=== PATIENT | female | born 1985 | race Caucasian/White ===

== ENCOUNTER 2017-11-26 14:44 | Emergency (ER) | payer OTHER ==
[~2017-11-26] VITALS: Ht 162.6 cm; Wt 54.0 kg
[2017-11-26] MEDS ORDERED: PRENATABS RX T1 EACH (15:29)
== END 2017-11-26 18:08 | disposition home or self-care (01) ==
LOC: ER 14:44
DX: O20.0 Threatened abortion (principal); Z34.01 Encounter for supervision of normal first pregnancy, first trimester

== ENCOUNTER 2018-05-21 14:06 | Outpatient (CLI) | payer OTHER ==
[~2018-05-21 14:06] MED LIST: PRENATABS RX T1 EACH
== END 2018-05-21 15:18 | disposition home or self-care (01) ==
LOC: NST 14:06
DX: Z34.83 Encounter for supervision of other normal pregnancy, third trimester (principal)

== ENCOUNTER 2018-05-23 15:00 | Inpatient (IN) | payer OTHER ==
[~2018-05-23] VITALS: Ht 162.6 cm; Wt 139.0 kg
== END 2018-06-09 12:43 | disposition home or self-care (01) | DRG 807 ==
LOC: LDR 06-07 08:24 → OB/GYN 06-07 08:24 → LDR 06-07 08:49 → OB/GYN 06-07 16:12
PROVIDERS: ADMIT Obstetrics & Gynecology Maternal & Fetal Medicine
PROC: 10E0XZZ Delivery of Products of Conception, External Approach (ICD-10-PCS; principal; 2018-06-07)
PROC: 0KQM0ZZ Repair Perineum Muscle, Open Approach (ICD-10-PCS; 2018-06-07)
PROC: 0W8NXZZ Division of Female Perineum, External Approach (ICD-10-PCS; 2018-06-07)
PROC: 3E033VJ Introduction of Other Hormone into Peripheral Vein, Percutaneous Approach (ICD-10-PCS; 2018-06-07)
PROC: 10907ZC Drainage of Amniotic Fluid, Therapeutic from Products of Conception, Via Natural or Artificial Opening (ICD-10-PCS; 2018-06-07)
PROC: 4A1HXCZ Monitoring of Products of Conception, Cardiac Rate, External Approach (ICD-10-PCS; 2018-06-07)
DX: O70.1 Second degree perineal laceration during delivery (principal); Z37.0 Single live birth; Z3A.39 39 weeks gestation of pregnancy

== ENCOUNTER 2018-05-29 16:28 | Outpatient (CLI) | payer OTHER | END 2018-05-29 17:24 | disposition HB | LOC: NST 16:28 | DX: Z34.83 Encounter for supervision of other normal pregnancy, third trimester (principal) ==

== ENCOUNTER 2021-01-07 08:12 | Inpatient (IN) | payer OTHER ==
[~2021-01-07] VITALS: Ht 163.8 cm; Wt 63.5 kg
== END 2021-01-10 14:05 | disposition home or self-care (01) | DRG 807 ==
LOC: LDR 08:12 → SURG-SUITE 15:16 → OB/GYN 01-12 17:02
PROVIDERS: ADMIT Obstetrics & Gynecology Maternal & Fetal Medicine; ATTEND Obstetrics & Gynecology Maternal & Fetal Medicine
PROC: 10E0XZZ Delivery of Products of Conception, External Approach (ICD-10-PCS; principal; 2021-01-07)
PROC: 0KQM0ZZ Repair Perineum Muscle, Open Approach (ICD-10-PCS; 2021-01-07)
PROC: 3E033VJ Introduction of Other Hormone into Peripheral Vein, Percutaneous Approach (ICD-10-PCS; 2021-01-07)
PROC: 4A1HXFZ Monitoring of Products of Conception, Cardiac Rhythm, External Approach (ICD-10-PCS; 2021-01-07)
DX: O70.1 Second degree perineal laceration during delivery (principal); Z37.0 Single live birth; Z3A.39 39 weeks gestation of pregnancy